=== PATIENT | female | born 1990 ===

== ENCOUNTER 2016-05-19 18:08 | Emergency (ER) | payer OTHER ==
--- NOTE | 2016-05-19 18:59 | ED NURSING NOTES ---
Clinical Report - Nurses [facility] [address] [place] [address] 05/19/2016 18:09 Patient: MERISSA CARTER V TRIAGE Triage time 1815. Acuity: LEVEL 5. Chief Complaint: (herpes outbreak). Alert. No acute distress. --18:24 Alycia Franco 18:22 05/19/16. BP: 110/57. HR: 85. RR: 16. O2 saturation: 100%. Temp: 97.8 F. Pain level now 7/10. --18:24 Alycia Franco. Weight: 72.1 kg. Height/Length: 59 inches. BMI: 32.1. --18:22 Alycia Franco. Medications Thyroid Hormone. --18:23 Alycia Franco. Allergies No Known Drug Allergy. --18:22 Alycia Franco. History Arrived by private vehicle. Historian: patient. Accompanied by family. This started yesterday. 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 PAST MEDICAL HX: Prior sexually transmitted disease history: herpes (recently). Treated for this in the ED. SOCIAL HX: Light tobacco smoker (cigarette)- less than 1/2 a pack per day. Occasional alcohol use. History of drug use: marijuana. FALL RISK ASSESSMENT: Fall risk assessment completed. No fall risk identified. NUTRITIONAL RISK ASSESSMENT: The nutritional risk assessment revealed no deficiencies. FUNCTIONAL ASSESSMENT: Functional assessment: no impairments noted. LEARNING NEEDS ASSESSMENT: The learning needs assessment revealed no barriers. SKIN INTEGRITY ASSESSMENT: Skin integrity risk assessment completed. No skin integrity risk identified. --18:24 Alycia Franoc. PROBLEMS: Abscess. Cellulitis. MRSA Infection. Lymphadenitis. Atypical Chest Pain. Otitis Media. Bronchitis. Immunizations. LNMP - Last Normal Menstrual Period. Hyperactive thyroid. Colitis. UTI - Urinary Tract Infection. Rheumatoid Arthritis. --18:23 Alycia Franco. Interventions ID band on patient. To treatment room. --18:24 Alycia Franco. PHYSICAL ASSESSMENT Ambulatory to room. GENERAL / NEURO / PSYCH: Alert. Oriented X 4. Appears in no acute distress. HEENT: Mucous membranes are pink. RESPIRATORY: Respirations not labored. Breath sounds within normal limits. CVS: Normal heart rate and rhythm. Capillary refill less than 2 seconds. GI / : Abdomen soft and nontender. Bowel sounds within normal limits. Genital lesions present. SKIN: Skin is warm and dry. --18:25 Alycia Franco. NURSING PROGRESS NOTES Two patient identifiers checked. Call light placed in reach. Bed placed in lowest position. Brakes of bed on. Patient ready for evaluation- chart flagged. --18:25 Alycia Franco. DISPOSITION / DISCHARGE Departure time: 1909. Condition at departure: unchanged and stable. Discharge instructions provided and reviewed with the patient. Reviewed medication(s). Patient verbalized understanding. Written instructions provided in Malaysian. The patient was discharged by the nurse practitioner. She was discharged home and accompanied by family. She left the Emergency Department ambulatory and via private vehicle. Family member driving. --19:13 Alycia Franco. Locked/Released at 05/19/2016 19:13 by Alycia Franco,
--- NOTE | 2016-05-19 18:59 | ED NURSING NOTES ---
Clinical Report - Nurses [facility] [address] [place] [address] 05/19/2016 18:09 Patient: MERISSA CARTER V TRIAGE Triage time 1815. Acuity: LEVEL 5. Chief Complaint: (herpes outbreak). Alert. No acute distress. --18:24 Alycia Franco 18:22 05/19/16. BP: 110/57. HR: 85. RR: 16. O2 saturation: 100%. Temp: 97.8 F. Pain level now 7/10. --18:24 Alycia Franco. Weight: 72.1 kg. Height/Length: 59 inches. BMI: 32.1. --18:22 Alycia Franco. Medications Thyroid Hormone. --18:23 Alycia Franco. Allergies No Known Drug Allergy. --18:22 Alycia Franco. History Arrived by private vehicle. Historian: patient. Accompanied by family. This started yesterday. 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 PAST MEDICAL HX: Prior sexually transmitted disease history: herpes (recently). Treated for this in the ED. SOCIAL HX: Light tobacco smoker (cigarette)- less than 1/2 a pack per day. Occasional alcohol use. History of drug use: marijuana. FALL RISK ASSESSMENT: Fall risk assessment completed. No fall risk identified. NUTRITIONAL RISK ASSESSMENT: The nutritional risk assessment revealed no deficiencies. FUNCTIONAL ASSESSMENT: Functional assessment: no impairments noted. LEARNING NEEDS ASSESSMENT: The learning needs assessment revealed no barriers. SKIN INTEGRITY ASSESSMENT: Skin integrity risk assessment completed. No skin integrity risk identified. --18:24 Alycia Franco. PROBLEMS: Abscess. Cellulitis. MRSA Infection. Lymphadenitis. Atypical Chest Pain. Otitis Media. Bronchitis. Immunizations. LNMP - Last Normal Menstrual Period. Hyperactive thyroid. Colitis. UTI - Urinary Tract Infection. Rheumatoid Arthritis. --18:23 Alycia Franco. Interventions ID band on patient. To treatment room. --18:24 Alycia Franco. PHYSICAL ASSESSMENT Ambulatory to room. GENERAL / NEURO / PSYCH: Alert. Oriented X 4. Appears in no acute distress. HEENT: Mucous membranes are pink. RESPIRATORY: Respirations not labored. Breath sounds within normal limits. CVS: Normal heart rate and rhythm. Capillary refill less than 2 seconds. GI / : Abdomen soft and nontender. Bowel sounds within normal limits. Genital lesions present. SKIN: Skin is warm and dry. --18:25 Alycia Franco. NURSING PROGRESS NOTES Two patient identifiers checked. Call light placed in reach. Bed placed in lowest position. Brakes of bed on. Patient ready for evaluation- chart flagged. --18:25 Alycia Franco. DISPOSITION / DISCHARGE Departure time: 1909. Condition at departure: unchanged and stable. Discharge instructions provided and reviewed with the patient. Reviewed medication(s). Patient verbalized understanding. Written instructions provided in [place]. The patient was discharged by the nurse practitioner. She was discharged home and accompanied by family. She left the Emergency Department ambulatory and via private vehicle. Family member driving. --19:13 Alycia Franco. Locked/Released at 05/19/2016 19:13 by Alycia Franco,
--- NOTE | 2016-05-19 18:59 | ED CLINICAL REPORT ---
Clinical Report - Physicians/Mid Levels [facility] [address] [place] [address] 05/19/2016 18:09 Patient: MERISSA CARTER V Time Seen: 18:43; initial patient contact, initial documentation, patient care assumed. Arrived- By private vehicle. Historian- patient. HISTORY OF PRESENT ILLNESS Chief Complaint: VAGINAL LESIONS. This started about 2 - 3 days ago and still present. The symptoms are described as moderate. The patient has had vaginal pain. No abdominal pain, pelvic pain, low back pain, flank pain or irregular periods. No vaginal discharge, pain with urination, urinary frequency, urgency of urination or hematuria. Sexually active. Denies current . Similar symptoms previously: Once, worse. Recent medical care: Not recently seen/assessed. REVIEW OF SYSTEMS All systems otherwise negative, except as recorded above. PAST HISTORY See nurses notes. ( PROBLEMS: Abscess. Cellulitis. MRSA Infection. Lymphadenitis. Atypical Chest Pain. Otitis Media. Bronchitis. Immunizations. LNMP - Last Normal Menstrual Period. Hyperactive thyroid. Colitis. UTI - Urinary Tract Infection. Rheumatoid Arthritis. --18:23 Alycia Franco.). SOCIAL HISTORY Light tobacco smoker. Occasional alcohol use. History of occasional drug use: marijuana. No recent travel. Is a local resident. FAMILY HISTORY Negative. ADDITIONAL NOTES The nursing notes have been reviewed with agreement regarding the chief complaint, HPI, ROS, PMH and patient medications and allergies. PHYSICAL EXAM Vital Signs: 05/19/2016 18:22 BP: 110/57. HR: 85. RR: 16. O2 saturation: 100%. Temp: 97.8 F. Have been reviewed as normal and appear to be correct. Appearance: Alert. Oriented X3. No acute distress. HEENT: Normal external inspection. ENT: Pharynx normal. Neck: Neck supple. Respiratory: No respiratory distress. Abdomen: Soft and nontender. : External inspection abnormal. Speculum exam abnormal. Many mildly tender herpes-like lesions (vesicles, papules, with an erythematous base) present on the right and left labia majora and minora (and suprapubic area). Bimanual exam abnormal. Skin: Skin warm and dry. Normal skin color. No rash. Normal skin turgor. Extremities: Extremities nontender. No lower extremity edema. Neuro: Oriented X 3. Mood/affect normal. No motor deficit. No sensory deficit. PROGRESS AND PROCEDURES Patient/family counseled in person regarding the patient's stable condition and diagnosis. 18:59. Differential Diagnosis: Other possible considerations: herpes, folliculitis, abscess, cellulitis, mrsa, fungus. Above considerations are based on history and physical exam. Differential diagnosis was discussed with patient. Disposition: Discharged home in good and unchanged condition (18:59). Condition: good and stable. CLINICAL IMPRESSION Herpes genitalis involving the vulva and vagina. No urinary retention. INSTRUCTIONS Warnings: GENERAL WARNINGS: Return or contact your physician immediately if your condition worsens or changes unexpectedly, if not improving as expected, or if other problems arise. Specifically return if problem worsens. Prescription Medications: Acyclovir 200 mg: Take 1 orally every 4 hours (five times daily) for 10 days. No refill. Ultram 50 mg tablets: take 1-2 orally every 6 hours as needed for pain. Dispense twenty (20). No refills. Substitution is permissible. Understanding of the discharge instructions verbalized by patient. Follow-up with: William Metzger MD, Obstetrics/Gynecology, , [facility], [address] [place] [address] Follow up in about five days even if well. Call for an appointment. Summary of care provided to patient. (Electronically signed by Nirali Kwon A.R.N.P. 05/19/2016 20:22)
--- NOTE | 2016-05-19 18:59 | ED CLINICAL REPORT ---
Clinical Report - Physicians/Mid Levels [facility] [address] [place] [address] 05/19/2016 18:09 Patient: MERISSA CARTER V Time Seen: 18:43; initial patient contact, initial documentation, patient care assumed. Arrived- By private vehicle. Historian- patient. HISTORY OF PRESENT ILLNESS Chief Complaint: VAGINAL LESIONS. This started about 2 - 3 days ago and still present. The symptoms are described as moderate. The patient has had vaginal pain. No abdominal pain, pelvic pain, low back pain, flank pain or irregular periods. No vaginal discharge, pain with urination, urinary frequency, urgency of urination or hematuria. Sexually active. Denies current . Similar symptoms previously: Once, worse. Recent medical care: Not recently seen/assessed. REVIEW OF SYSTEMS All systems otherwise negative, except as recorded above. PAST HISTORY See nurses notes. ( PROBLEMS: Abscess. Cellulitis. MRSA Infection. Lymphadenitis. Atypical Chest Pain. Otitis Media. Bronchitis. Immunizations. LNMP - Last Normal Menstrual Period. Hyperactive thyroid. Colitis. UTI - Urinary Tract Infection. Rheumatoid Arthritis. --18:23 Alycia Franco.). SOCIAL HISTORY Light tobacco smoker. Occasional alcohol use. History of occasional drug use: marijuana. No recent travel. Is a local resident. FAMILY HISTORY Negative. ADDITIONAL NOTES The nursing notes have been reviewed with agreement regarding the chief complaint, HPI, ROS, PMH and patient medications and allergies. PHYSICAL EXAM Vital Signs: 05/19/2016 18:22 BP: 110/57. HR: 85. RR: 16. O2 saturation: 100%. Temp: 97.8 F. Have been reviewed as normal and appear to be correct. Appearance: Alert. Oriented X3. No acute distress. HEENT: Normal external inspection. ENT: Pharynx normal. Neck: Neck supple. Respiratory: No respiratory distress. Abdomen: Soft and nontender. : External inspection abnormal. Speculum exam abnormal. Many mildly tender herpes-like lesions (vesicles, papules, with an erythematous base) present on the right and left labia majora and minora (and suprapubic area). Bimanual exam abnormal. Skin: Skin warm and dry. Normal skin color. No rash. Normal skin turgor. Extremities: Extremities nontender. No lower extremity edema. Neuro: Oriented X 3. Mood/affect normal. No motor deficit. No sensory deficit. PROGRESS AND PROCEDURES Patient/family counseled in person regarding the patient's stable condition and diagnosis. 18:59. Differential Diagnosis: Other possible considerations: herpes, folliculitis, abscess, cellulitis, mrsa, fungus. Above considerations are based on history and physical exam. Differential diagnosis was discussed with patient. Disposition: Discharged home in good and unchanged condition (18:59). Condition: good and stable. CLINICAL IMPRESSION Herpes genitalis involving the vulva and vagina. No urinary retention. INSTRUCTIONS Warnings: GENERAL WARNINGS: Return or contact your physician immediately if your condition worsens or changes unexpectedly, if not improving as expected, or if other problems arise. Specifically return if problem worsens. Prescription Medications: Acyclovir 200 mg: Take 1 orally every 4 hours (five times daily) for 10 days. No refill. Ultram 50 mg tablets: take 1-2 orally every 6 hours as needed for pain. Dispense twenty (20). No refills. Substitution is permissible. Understanding of the discharge instructions verbalized by patient. Follow-up with: William Metzger MD, Obstetrics/Gynecology, , [facility], [address] [place] [address] Follow up in about five days even if well. Call for an appointment. Summary of care provided to patient. (Electronically signed by Nirali Kwon A.R.N.P. 05/19/2016 20:22)
--- NOTE | 2016-05-19 20:22 | ED MAR SUMMARY ---
..... Medication Administration Record [facility] [address] [place], [place] [id number] Patient: MERISSA CARTER V Visit ID: [id number] 25y, F Weight: 72.1 kg Height/Length: 59 in BMI: 32.1 ALLERGIES: No Known Drug Allergy
--- NOTE | 2016-05-19 20:22 | ED MAR SUMMARY ---
..... Medication Administration Record [facility] [address] [place], [place] [id number] Patient: MERISSA CARTER V Visit ID: [id number] 25y, F Weight: 72.1 kg Height/Length: 59 in BMI: 32.1 ALLERGIES: No Known Drug Allergy
--- NOTE | 2016-05-19 20:22 | ED DISCHARGE INSTRUCTIONS ---
Patient: MERISSA CARTER V General Instructions [facility] VisitID: [id number] [place] [address] 25y, F Registration Date/Time: 05/19/2016 Herpes genitalis involving the vulva and vagina. No urinary retention. INSTRUCTIONS Warnings: GENERAL WARNINGS: Return or contact your physician immediately if your condition worsens or changes unexpectedly, if not improving as expected, or if other problems arise. Specifically return if problem worsens. Prescription Medications: Acyclovir 200 mg: Take 1 orally every 4 hours (five times daily) for 10 days. No refill. Ultram 50 mg tablets: take 1-2 orally every 6 hours as needed for pain. Dispense twenty (20). No refills. Substitution is permissible. Understanding of the discharge instructions verbalized by patient. Follow-up with: William Metzger MD, Obstetrics/Gynecology, , [facility], [address] [place] [address] Follow up in about five days even if well. Call for an appointment. Summary of care provided to patient. ADDITIONAL INFORMATION Genital Herpes Genital herpes is a common sexually transmitted disease (STD). It is caused by the Herpes Simplex virus. One out of five (20%) teens and adults carry the herpes virus. During an outbreak, it causes small blisters that break open, leaving small painful ulcers (sores) in the genital area. Eventually, scabs form and the ulcers heal. In women, these are most often on the skin just outside the vaginal opening. They can occur on the buttocks, anus or cervix. In men, the sores are usually on the tip, sides or base of the penis. They also occur on the scrotum, buttocks or thighs. The first episode begins within 2-3 weeks after exposure to an infected sexual partner. It may last 1-3 weeks and cause headache, muscle ache and fevers. The first outbreak is usually the worst. Because the virus remains in the body even after the sores heal, most persons will have recurrences. The frequency of recurrent outbreaks varies with each person. Some people will never have another outbreak. Others will have several episodes a year. Later outbreaks are usually shorter, milder and less painful. For many, the number of outbreaks tends to decrease over time. Various factors may trigger a recurrence. These include: Emotional stress Menstruation Presence of another illness (cold, flu, or fever from any cause) Overexertion and fatigue Weakened immune system Home Care: It is very important that you do not have sexual relations until ALL the herpes sores have healed completely. Wash the affected area gently with mild soap and water. Wash your hands after touching the affected area. You may use acetaminophen (Tylenol) or ibuprofen (Motrin, Advil) to control pain, unless another pain medicine was prescribed. [NOTE: If you have chronic liver or kidney disease or ever had a stomach ulcer or GI bleeding, talk with your doctor before using these medicines.] Your doctor may prescribe anti-viral medicine during the first outbreak. This will help the sores heal faster. Antiviral medicine may also be prescribed to have at home to take at the first sign of a recurrence. This will shorten the symptoms of a recurrence. For persons with frequent outbreaks, daily therapy may be prescribed. This will reduce the frequency of attacks. Daily therapy may also reduce risk of spread of herpes to your sexual partner. Discuss the risks and benefits of daily therapy with your doctor. If you are a woman who is now or become in the future, let your doctor know that you have had herpes since this may affect the method of delivery. Preventing Spread To Others: The virus is spread by sexual contact with someone who has the herpes virus. The risk of spread is highest when the sores are present. However, there is a chance of spreading the virus even when sores are not visible . Inform future sexual partners that you have herpes and that he/she may become infected. To reduce the risk of passing the virus to a partner who has never had herpes, avoid sexual relations at the first sign of an outbreak and until the ulcers are fully healed. Latex condoms reduce the risk of spread between outbreaks if the infected site is covered, but they do not guarantee protection. Follow-Up: Persons who have just learned that they have herpes may feel guilt, anger, and be emotionally upset. Getting the facts helps put you back in control. Follow up with your doctor or the Public Health Dept for complete STD screening, including HIV testing. For more information about Herpes, see the "National Herpes Resource Center" http://www.ashastd.org/herpes/herpes_overview.cfm ; or call the National STD Hotline: 290.171.9422. Get Prompt Medical Attention if any of the following occur: Inability to urinate due to pain Swelling or increasing redness in the genital area Unusual drowsiness, weakness or confusion Headache, stiff neck Discharge from the vagina or penis Increasing back or abdominal pain Rash or joint pain Acyclovir Oral tablet What is this medicine? ACYCLOVIR (ay SYE kloe veer) is an antiviral medicine. It is used to treat or prevent infections caused by certain kinds of viruses. Examples of these infections include herpes and shingles. This medicine will not cure herpes. How should I use this medicine? Take this medicine by mouth with a glass of water. Follow the directions on the prescription label. You can take it with or without food. Take your medicine at regular intervals. Do not take your medicine more often than directed. Take all of your medicine as directed even if you think your are better. Do not skip doses or stop your medicine early. Talk to your ballistician regarding the use of this medicine in children. While this drug may be prescribed for selected conditions, precautions do apply. What side effects may I notice from receiving this medicine? Side effects that you should report to your doctor or health administrator health care facility as soon as possible: allergic reactions like skin rash, itching or hives, swelling of the face, lips, or tongue chest pain confusion, hallucinations, tremor dark urine increased sensitivity to the sun redness, blistering, peeling or loosening of the skin, including inside the mouth seizures trouble passing urine or change in the amount of urine unusual bleeding or bruising, or pinpoint red spots on the skin unusually weak or tired yellowing of the eyes or skin Side effects that usually do not require medical attention (report to your doctor or health administrator health care facility if they continue or are bothersome): diarrhea fever headache nausea, vomiting stomach upset What may interact with this medicine? probenecid What if I miss a dose? If you miss a dose, take it as soon as you can. If it is almost time for your next dose, take only that dose. Do not take double or extra doses. Where should I keep my medicine? Keep out of the reach of children. Store at room temperature between 15 and 25 degrees C (59 and 77 degrees F). Throw away any unused medicine after the expiration date. What should I tell my health care provider before I take this medicine? They need to know if you have any of these conditions: kidney disease an unusual or allergic reaction to acyclovir, ganciclovir, valacyclovir, other medicines, foods, dyes, or preservatives or trying to get breast-feeding What should I watch for while using this medicine? Tell your doctor or health administrator health care facility if your symptoms do not improve. This medicine works best when started very early in the course of an infection. Begin treatment at the first signs of infection. Drink 6 to 8 glasses of water or fluids every day while you are taking this medicine. This will help prevent side effects. You can still pass chickenpox, shingles, or herpes to another person even while you are taking this medicine. Avoid contact with others as directed. Genital herpes is a sexually transmitted disease. Talk to your doctor about how to stop the spread of infection. Tramadol Hydrochloride Oral tablet What is this medicine? TRAMADOL (TRA ma dole) is a pain reliever. It is used to treat moderate to severe pain in adults. How should I use this medicine? Take this medicine by mouth with a full glass of water. Follow the directions on the prescription label. If the medicine upsets your stomach, take it with food or milk. Do not take more medicine than you are told to take. Talk to your ballistician regarding the use of this medicine in children. Special care may be needed. What side effects may I notice from receiving this medicine? Side effects that you should report to your doctor or health administrator health care facility as soon as possible: allergic reactions like skin rash, itching or hives, swelling of the face, lips, or tongue breathing difficulties, wheezing confusion itching light headedness or fainting spells redness, blistering, peeling or loosening of the skin, including inside the mouth seizures Side effects that usually do not require medical attention (report to your doctor or health administrator health care facility if they continue or are bothersome): constipation dizziness drowsiness headache nausea, vomiting What may interact with this medicine? Do not take this medicine with any of the following medications: MAOIs like Carbex, Eldepryl, Marplan, Nardil, and Parnate This medicine may also interact with the following medications: alcohol or medicines that contain alcohol antihistamines benzodiazepines bupropion carbamazepine or oxcarbazepine clozapine cyclobenzaprine digoxin furazolidone linezolid medicines for depression, anxiety, or psychotic disturbances medicines for migraine headache like almotriptan, eletriptan, frovatriptan, naratriptan, rizatriptan, sumatriptan, zolmitriptan medicines for pain like pentazocine, buprenorphine, butorphanol, meperidine, nalbuphine, and propoxyphene medicines for sleep muscle relaxants naltrexone phenobarbital phenothiazines like perphenazine, thioridazine, chlorpromazine, mesoridazine, fluphenazine, prochlorperazine, promazine, and trifluoperazine procarbazine warfarin What if I miss a dose? If you miss a dose, take it as soon as you can. If it is almost time for your next dose, take only that dose. Do not take double or extra doses. Where should I keep my medicine? Keep out of the reach of children. Store at room temperature between 15 and 30 degrees C (59 and 86 degrees F). Keep container tightly closed. Throw away any unused medicine after the expiration date. What should I tell my health care provider before I take this medicine? They need to know if you have any of these conditions: brain tumor depression drug abuse or addiction head injury if you frequently drink alcohol containing drinks kidney disease or trouble passing urine liver disease lung disease, asthma, or breathing problems seizures or epilepsy suicidal thoughts, plans, or attempt; a previous suicide attempt by you or a family member an unusual or allergic reaction to tramadol, codeine, other medicines, foods, dyes, or preservatives or trying to get breast-feeding What should I watch for while using this medicine? Tell your doctor or health administrator health care facility if your pain does not go away, if it gets worse, or if you have new or a different type of pain. You may develop tolerance to the medicine. Tolerance means that you will need a higher dose of the medicine for pain relief. Tolerance is normal and is expected if you take this medicine for a long time. Do not suddenly stop taking your medicine because you may develop a severe reaction. Your body becomes used to the medicine. This does NOT mean you are addicted. Addiction is a behavior related to getting and using a drug for a non-medical reason. If you have pain, you have a medical reason to take pain medicine. Your doctor will tell you how much medicine to take. If your doctor wants you to stop the medicine, the dose will be slowly lowered over time to avoid any side effects. You may get drowsy or dizzy. Do not drive, use machinery, or do anything that needs mental alertness until you know how this medicine affects you. Do not stand or sit up quickly, especially if you are an older patient. This reduces the risk of dizzy or fainting spells. Alcohol can increase or decrease the effects of this medicine. Avoid alcoholic drinks. You may have constipation. Try to have a bowel movement at least every 2 to 3 days. If you do not have a bowel movement for 3 days, call your doctor or health administrator health care facility. Your mouth may get dry. Chewing sugarless gum or sucking hard candy, and drinking plenty of water may help. Contact your doctor if the problem does not go away or is severe. You have been given the following additional information: Herpes Genitalis, Hsv: Type Ii Acyclovir Oral tablet Tramadol Hydrochloride Oral tablet (Electronically signed by Nirali Kwon A.R.N.P. 05/19/2016 20:22)
--- NOTE | 2016-05-19 20:22 | ED MED RECONCILIATION SUMMARY ---
Patient: MERISSA CARTER V Medication Reconciliation Report [facility] VisitID: [id number] [address] [place] [address] 25y, F Registration Date/Time: 05/19/2016 Weight: 72.1 kg Height/Length: 59 in. BMI: 32.1 ALLERGIES: No Known Drug Allergy The patient's Home Medications are listed below: THE FOLLOWING MEDICATIONS NEED TO BE RECONCILED: Thyroid Hormone The source(s) of the original Home Medication information: Not obtained. The following Medications were given to the patient in the Emergency Department: None. The following Medications were prescribed to the patient: Acyclovir 200 mg: Take 1 orally every 4 hours (five times daily) for 10 days. No refill. -- Nirali Kwon, Ken.R.N.P. Ultram 50 mg tablets: take 1-2 orally every 6 hours as needed for pain. Dispense twenty (20). No refills. Substitution is permissible. -- Nirali Kwon A.R.N.P.
--- NOTE | 2016-05-19 20:22 | ED DISCHARGE INSTRUCTIONS ---
Patient: MERISSA CARTER V General Instructions [facility] VisitID: [id number] [place] [address] 25y, F Registration Date/Time: 05/19/2016 Herpes genitalis involving the vulva and vagina. No urinary retention. INSTRUCTIONS Warnings: GENERAL WARNINGS: Return or contact your physician immediately if your condition worsens or changes unexpectedly, if not improving as expected, or if other problems arise. Specifically return if problem worsens. Prescription Medications: Acyclovir 200 mg: Take 1 orally every 4 hours (five times daily) for 10 days. No refill. Ultram 50 mg tablets: take 1-2 orally every 6 hours as needed for pain. Dispense twenty (20). No refills. Substitution is permissible. Understanding of the discharge instructions verbalized by patient. Follow-up with: William Metzger MD, Obstetrics/Gynecology, , [facility], [address] [place] [address] Follow up in about five days even if well. Call for an appointment. Summary of care provided to patient. ADDITIONAL INFORMATION Genital Herpes Genital herpes is a common sexually transmitted disease (STD). It is caused by the Herpes Simplex virus. One out of five (20%) teens and adults carry the herpes virus. During an outbreak, it causes small blisters that break open, leaving small painful ulcers (sores) in the genital area. Eventually, scabs form and the ulcers heal. In women, these are most often on the skin just outside the vaginal opening. They can occur on the buttocks, anus or cervix. In men, the sores are usually on the tip, sides or base of the penis. They also occur on the scrotum, buttocks or thighs. The first episode begins within 2-3 weeks after exposure to an infected sexual partner. It may last 1-3 weeks and cause headache, muscle ache and fevers. The first outbreak is usually the worst. Because the virus remains in the body even after the sores heal, most persons will have recurrences. The frequency of recurrent outbreaks varies with each person. Some people will never have another outbreak. Others will have several episodes a year. Later outbreaks are usually shorter, milder and less painful. For many, the number of outbreaks tends to decrease over time. Various factors may trigger a recurrence. These include: Emotional stress Menstruation Presence of another illness (cold, flu, or fever from any cause) Overexertion and fatigue Weakened immune system Home Care: It is very important that you do not have sexual relations until ALL the herpes sores have healed completely. Wash the affected area gently with mild soap and water. Wash your hands after touching the affected area. You may use acetaminophen (Tylenol) or ibuprofen (Motrin, Advil) to control pain, unless another pain medicine was prescribed. [NOTE: If you have chronic liver or kidney disease or ever had a stomach ulcer or GI bleeding, talk with your doctor before using these medicines.] Your doctor may prescribe anti-viral medicine during the first outbreak. This will help the sores heal faster. Antiviral medicine may also be prescribed to have at home to take at the first sign of a recurrence. This will shorten the symptoms of a recurrence. For persons with frequent outbreaks, daily therapy may be prescribed. This will reduce the frequency of attacks. Daily therapy may also reduce risk of spread of herpes to your sexual partner. Discuss the risks and benefits of daily therapy with your doctor. If you are a woman who is now or become in the future, let your doctor know that you have had herpes since this may affect the method of delivery. Preventing Spread To Others: The virus is spread by sexual contact with someone who has the herpes virus. The risk of spread is highest when the sores are present. However, there is a chance of spreading the virus even when sores are not visible . Inform future sexual partners that you have herpes and that he/she may become infected. To reduce the risk of passing the virus to a partner who has never had herpes, avoid sexual relations at the first sign of an outbreak and until the ulcers are fully healed. Latex condoms reduce the risk of spread between outbreaks if the infected site is covered, but they do not guarantee protection. Follow-Up: Persons who have just learned that they have herpes may feel guilt, anger, and be emotionally upset. Getting the facts helps put you back in control. Follow up with your doctor or the Public Health Dept for complete STD screening, including HIV testing. For more information about Herpes, see the "National Herpes Resource Center" http://www.ashastd.org/herpes/herpes_overview.cfm ; or call the National STD Hotline: 673.391.5006. Get Prompt Medical Attention if any of the following occur: Inability to urinate due to pain Swelling or increasing redness in the genital area Unusual drowsiness, weakness or confusion Headache, stiff neck Discharge from the vagina or penis Increasing back or abdominal pain Rash or joint pain Acyclovir Oral tablet What is this medicine? ACYCLOVIR (ay SYE kloe veer) is an antiviral medicine. It is used to treat or prevent infections caused by certain kinds of viruses. Examples of these infections include herpes and shingles. This medicine will not cure herpes. How should I use this medicine? Take this medicine by mouth with a glass of water. Follow the directions on the prescription label. You can take it with or without food. Take your medicine at regular intervals. Do not take your medicine more often than directed. Take all of your medicine as directed even if you think your are better. Do not skip doses or stop your medicine early. Talk to your armoured car escort regarding the use of this medicine in children. While this drug may be prescribed for selected conditions, precautions do apply. What side effects may I notice from receiving this medicine? Side effects that you should report to your doctor or health wound care physician as soon as possible: allergic reactions like skin rash, itching or hives, swelling of the face, lips, or tongue chest pain confusion, hallucinations, tremor dark urine increased sensitivity to the sun redness, blistering, peeling or loosening of the skin, including inside the mouth seizures trouble passing urine or change in the amount of urine unusual bleeding or bruising, or pinpoint red spots on the skin unusually weak or tired yellowing of the eyes or skin Side effects that usually do not require medical attention (report to your doctor or health wound care physician if they continue or are bothersome): diarrhea fever headache nausea, vomiting stomach upset What may interact with this medicine? probenecid What if I miss a dose? If you miss a dose, take it as soon as you can. If it is almost time for your next dose, take only that dose. Do not take double or extra doses. Where should I keep my medicine? Keep out of the reach of children. Store at room temperature between 15 and 25 degrees C (59 and 77 degrees F). Throw away any unused medicine after the expiration date. What should I tell my health care provider before I take this medicine? They need to know if you have any of these conditions: kidney disease an unusual or allergic reaction to acyclovir, ganciclovir, valacyclovir, other medicines, foods, dyes, or preservatives or trying to get breast-feeding What should I watch for while using this medicine? Tell your doctor or health wound care physician if your symptoms do not improve. This medicine works best when started very early in the course of an infection. Begin treatment at the first signs of infection. Drink 6 to 8 glasses of water or fluids every day while you are taking this medicine. This will help prevent side effects. You can still pass chickenpox, shingles, or herpes to another person even while you are taking this medicine. Avoid contact with others as directed. Genital herpes is a sexually transmitted disease. Talk to your doctor about how to stop the spread of infection. Tramadol Hydrochloride Oral tablet What is this medicine? TRAMADOL (TRA ma dole) is a pain reliever. It is used to treat moderate to severe pain in adults. How should I use this medicine? Take this medicine by mouth with a full glass of water. Follow the directions on the prescription label. If the medicine upsets your stomach, take it with food or milk. Do not take more medicine than you are told to take. Talk to your armoured car escort regarding the use of this medicine in children. Special care may be needed. What side effects may I notice from receiving this medicine? Side effects that you should report to your doctor or health wound care physician as soon as possible: allergic reactions like skin rash, itching or hives, swelling of the face, lips, or tongue breathing difficulties, wheezing confusion itching light headedness or fainting spells redness, blistering, peeling or loosening of the skin, including inside the mouth seizures Side effects that usually do not require medical attention (report to your doctor or health wound care physician if they continue or are bothersome): constipation dizziness drowsiness headache nausea, vomiting What may interact with this medicine? Do not take this medicine with any of the following medications: MAOIs like Carbex, Eldepryl, Marplan, Nardil, and Parnate This medicine may also interact with the following medications: alcohol or medicines that contain alcohol antihistamines benzodiazepines bupropion carbamazepine or oxcarbazepine clozapine cyclobenzaprine digoxin furazolidone linezolid medicines for depression, anxiety, or psychotic disturbances medicines for migraine headache like almotriptan, eletriptan, frovatriptan, naratriptan, rizatriptan, sumatriptan, zolmitriptan medicines for pain like pentazocine, buprenorphine, butorphanol, meperidine, nalbuphine, and propoxyphene medicines for sleep muscle relaxants naltrexone phenobarbital phenothiazines like perphenazine, thioridazine, chlorpromazine, mesoridazine, fluphenazine, prochlorperazine, promazine, and trifluoperazine procarbazine warfarin What if I miss a dose? If you miss a dose, take it as soon as you can. If it is almost time for your next dose, take only that dose. Do not take double or extra doses. Where should I keep my medicine? Keep out of the reach of children. Store at room temperature between 15 and 30 degrees C (59 and 86 degrees F). Keep container tightly closed. Throw away any unused medicine after the expiration date. What should I tell my health care provider before I take this medicine? They need to know if you have any of these conditions: brain tumor depression drug abuse or addiction head injury if you frequently drink alcohol containing drinks kidney disease or trouble passing urine liver disease lung disease, asthma, or breathing problems seizures or epilepsy suicidal thoughts, plans, or attempt; a previous suicide attempt by you or a family member an unusual or allergic reaction to tramadol, codeine, other medicines, foods, dyes, or preservatives or trying to get breast-feeding What should I watch for while using this medicine? Tell your doctor or health wound care physician if your pain does not go away, if it gets worse, or if you have new or a different type of pain. You may develop tolerance to the medicine. Tolerance means that you will need a higher dose of the medicine for pain relief. Tolerance is normal and is expected if you take this medicine for a long time. Do not suddenly stop taking your medicine because you may develop a severe reaction. Your body becomes used to the medicine. This does NOT mean you are addicted. Addiction is a behavior related to getting and using a drug for a non-medical reason. If you have pain, you have a medical reason to take pain medicine. Your doctor will tell you how much medicine to take. If your doctor wants you to stop the medicine, the dose will be slowly lowered over time to avoid any side effects. You may get drowsy or dizzy. Do not drive, use machinery, or do anything that needs mental alertness until you know how this medicine affects you. Do not stand or sit up quickly, especially if you are an older patient. This reduces the risk of dizzy or fainting spells. Alcohol can increase or decrease the effects of this medicine. Avoid alcoholic drinks. You may have constipation. Try to have a bowel movement at least every 2 to 3 days. If you do not have a bowel movement for 3 days, call your doctor or health wound care physician. Your mouth may get dry. Chewing sugarless gum or sucking hard candy, and drinking plenty of water may help. Contact your doctor if the problem does not go away or is severe. You have been given the following additional information: Herpes Genitalis, Hsv: Type Ii Acyclovir Oral tablet Tramadol Hydrochloride Oral tablet (Electronically signed by Nirali Kwon A.R.N.P. 05/19/2016 20:22)
--- NOTE | 2016-05-19 20:22 | ED MED RECONCILIATION SUMMARY ---
Patient: MERISSA CARTER V Medication Reconciliation Report [facility] VisitID: [id number] [address] [place] [address] 25y, F Registration Date/Time: 05/19/2016 Weight: 72.1 kg Height/Length: 59 in. BMI: 32.1 ALLERGIES: No Known Drug Allergy The patient's Home Medications are listed below: THE FOLLOWING MEDICATIONS NEED TO BE RECONCILED: Thyroid Hormone The source(s) of the original Home Medication information: Not obtained. The following Medications were given to the patient in the Emergency Department: None. The following Medications were prescribed to the patient: Acyclovir 200 mg: Take 1 orally every 4 hours (five times daily) for 10 days. No refill. -- Nirali Kwon, Ken.R.N.P. Ultram 50 mg tablets: take 1-2 orally every 6 hours as needed for pain. Dispense twenty (20). No refills. Substitution is permissible. -- Nirali Kwon A.R.N.P.
== END 2016-05-19 19:13 | disposition home or self-care (01) ==
LOC: ED SRH 18:08
DX: A60.09 Herpesviral infection of other urogenital tract (principal); F17.210 Nicotine dependence, cigarettes, uncomplicated

== ENCOUNTER 2016-06-07 14:26 | Emergency (ER) | payer OTHER ==
--- NOTE | 2016-06-07 15:57 | ED NURSING NOTES ---
Clinical Report - Nurses [facility] [address] [place] [address] 06/07/2016 14:28 Patient: MERISSA CARTER V TRIAGE Triage time 1435. Acuity: LEVEL 3. Chief Complaint: SHORTNESS OF BREATH and (headache, cough w copious amounts of sputum that is greenish colored). --14:50 Trisha Gatica R.N. 14:35 06/07/16. BP: 120/73. HR: 140. RR: 26. O2 saturation: 96% on room air. Temp: 98.7 F. Pain level now: 01/11. Additional comments: ches, back, shoulder. --14:50 Trisha Gatica R.N. Weight: 58.9 kg stated. Height/Length: 59 inches Per Patient. BMI: 26.2. --14:48 Trisha Gatica R.N. Medications Thyroid Hormone. --14:46 Trisha Gatica R.N. tylenol 975mg prn, last dose 0900. --14:47 Trisha Gatica R.N. Mucinex Fast-Max Day/Night Tab Oral, last dose last night . --14:47 Trisha Gatica R.N. Allergies No Known Drug Allergy. --14:46 Trisha Gatica R.N. History Arrived by private vehicle. Historian: patient and family. Accompanied by family. Primary physician ([facility]). Onset. (x 1 week, much worse last 3 -4 days). She has had fever, a cough, chest pain and back pain. ( also c/o left shoulder pain onset 3 days ago . has had vomiting with vigorous cough. difficulty sleeping at night). SOCIAL HX: Light tobacco smoker (cigarette)- less than 1/2 a pack per day. No alcohol use. --14:50 Trisha Gatica R.N. PROBLEMS: Herpes Genitalis. STD - Sexually Transmitted Disease. Abscess. Cellulitis. MRSA Infection. Lymphadenitis. Atypical Chest Pain. Otitis Media. Bronchitis. Hyperactive thyroid. Colitis. UTI - Urinary Tract Infection. Rheumatoid Arthritis. --14:46 Trisha Gatica R.N. Interventions ID band on patient. To treatment room. --14:50 Trisha Gatica R.N. PHYSICAL ASSESSMENT 14:35. Ambulatory to room. Patient gowned. GENERAL / NEURO / PSYCH: Alert. Oriented X 4. Appears anxious. RESPIRATORY: The patient can speak in full sentences. Cough. Chest wall tenderness. CVS: Capillary refill less than 2 seconds. GI / : Abdomen soft. SKIN: Skin is warm and dry. --14:51 Trisha Gatica R.N. NURSING PROGRESS NOTES 14:35. Patient gowned. Head of bed elevated. Reassurance given. Patient identifiers checked. Call light placed in reach. Side rails up. Bed placed in lowest position. Patient ready for evaluation- chart flagged. --14:50 Trisha Gatica R.N. DISPOSITION / DISCHARGE 15:45. Condition at departure: unchanged and stable. No learning barriers present. Discharge instructions provided and reviewed with the patient. Reviewed medication(s) (zithromax, motrin, tylenol). Patient verbalized understanding. Written instructions provided in Sami. The patient was discharged home and accompanied by family. She left the Emergency Department ambulatory and via private vehicle. Family member driving. --15:53 Trisha Gatica R.N. 15:45 06/07/16. BP: 112/80. HR: 108. RR: 22. O2 saturation: 94% on room air. Temp: deferred. Pain level now: 01/11. --15:53 Trisha Gatica R.N. Locked/Released at 06/07/2016 15:57 by Trisha Gatica R.N.
--- NOTE | 2016-06-07 15:57 | ED NURSING NOTES ---
Clinical Report - Nurses [facility] [address] [place] [address] 06/07/2016 14:28 Patient: MERISSA CARTER V TRIAGE Triage time 1435. Acuity: LEVEL 3. Chief Complaint: SHORTNESS OF BREATH and (headache, cough w copious amounts of sputum that is greenish colored). --14:50 Trisha Gatica R.N. 14:35 06/07/16. BP: 120/73. HR: 140. RR: 26. O2 saturation: 96% on room air. Temp: 98.7 F. Pain level now: 01/11. Additional comments: ches, back, shoulder. --14:50 Trisha Gatica R.N. Weight: 58.9 kg stated. Height/Length: 59 inches Per Patient. BMI: 26.2. --14:48 Trisha Gatica R.N. Medications Thyroid Hormone. --14:46 Trisha Gatica R.N. tylenol 975mg prn, last dose 0900. --14:47 Trisha Gatica R.N. Mucinex Fast-Max Day/Night Tab Oral, last dose last night . --14:47 Trisha Gatica R.N. Allergies No Known Drug Allergy. --14:46 Trisha Gatica R.N. History Arrived by private vehicle. Historian: patient and family. Accompanied by family. Primary physician ([facility]). Onset. (x 1 week, much worse last 3 -4 days). She has had fever, a cough, chest pain and back pain. ( also c/o left shoulder pain onset 3 days ago . has had vomiting with vigorous cough. difficulty sleeping at night). SOCIAL HX: Light tobacco smoker (cigarette)- less than 1/2 a pack per day. No alcohol use. --14:50 Trisha Gatica R.N. PROBLEMS: Herpes Genitalis. STD - Sexually Transmitted Disease. Abscess. Cellulitis. MRSA Infection. Lymphadenitis. Atypical Chest Pain. Otitis Media. Bronchitis. Hyperactive thyroid. Colitis. UTI - Urinary Tract Infection. Rheumatoid Arthritis. --14:46 Trisha Gatica R.N. Interventions ID band on patient. To treatment room. --14:50 Trisha Gatica R.N. PHYSICAL ASSESSMENT 14:35. Ambulatory to room. Patient gowned. GENERAL / NEURO / PSYCH: Alert. Oriented X 4. Appears anxious. RESPIRATORY: The patient can speak in full sentences. Cough. Chest wall tenderness. CVS: Capillary refill less than 2 seconds. GI / : Abdomen soft. SKIN: Skin is warm and dry. --14:51 Trisha Gatica R.N. NURSING PROGRESS NOTES 14:35. Patient gowned. Head of bed elevated. Reassurance given. Patient identifiers checked. Call light placed in reach. Side rails up. Bed placed in lowest position. Patient ready for evaluation- chart flagged. --14:50 Trisha Gatica R.N. DISPOSITION / DISCHARGE 15:45. Condition at departure: unchanged and stable. No learning barriers present. Discharge instructions provided and reviewed with the patient. Reviewed medication(s) (zithromax, motrin, tylenol). Patient verbalized understanding. Written instructions provided in Albanian. The patient was discharged home and accompanied by family. She left the Emergency Department ambulatory and via private vehicle. Family member driving. --15:53 Trisha Gatica R.N. 15:45 06/07/16. BP: 112/80. HR: 108. RR: 22. O2 saturation: 94% on room air. Temp: deferred. Pain level now: 01/11. --15:53 Trisha Gatica R.N. Locked/Released at 06/07/2016 15:57 by Trisha Gatica R.N.
--- NOTE | 2016-06-07 15:57 | ED CLINICAL REPORT ---
Clinical Report - Physicians/Mid Levels [facility] [address] [place] [address] 06/07/2016 14:28 Patient: MERISSA CARTER V Time Seen: 1510; initial patient contact, initial documentation, patient care assumed. Arrived- By private vehicle. Historian- patient. HISTORY OF PRESENT ILLNESS Chief Complaint: COUGH and FEVER. This started about 1 weeks ago and is still present. The illness is described as moderate. The patient has had a cough, nasal congestion, a subjective fever, muscle aches and a nasal discharge. She has had scant amounts of white sputum. No difficulty breathing, chest discomfort or pain, sore throat or sinus pressure. No sinus drainage or ear pain. Additional history - No known contact with a sick individual. Similar symptoms previously: None. Recent medical care: Not recently seen/assessed. REVIEW OF SYSTEMS No headache or abdominal pain. She has had vomiting (coughing so hard it makes her gag and vomit). All systems otherwise negative, except as recorded above. PAST HISTORY See nurses notes. PROBLEMS: Herpes Genitalis. STD - Sexually Transmitted Disease. Abscess. Cellulitis. MRSA Infection. Lymphadenitis. Atypical Chest Pain. Otitis Media. Bronchitis. Hyperactive thyroid. Colitis. UTI - Urinary Tract Infection. Rheumatoid Arthritis. --14:46 Trisha Gatica RIgnacio. SOCIAL HISTORY Light tobacco smoker. Occasional alcohol use. History of occasional drug use: marijuana. Not exposed to second-hand smoke at home. No recent travel. Is a local resident. FAMILY HISTORY Negative. ADDITIONAL NOTES The nursing notes have been reviewed with agreement regarding the chief complaint, HPI, ROS, PMH and patient medications and allergies. PHYSICAL EXAM Vital Signs: 06/07/2016 14:35 BP: 120/73. HR: 140. RR: 26. O2 saturation: 96%. Temp: 98.7 F. Pain level now: 10/10. Have been reviewed as abnormal and appear to be correct. Blood pressure normal. Tachycardic. Respiratory rate normal. Temperature normal. Oxygen saturation normal. Appearance: Alert. No acute distress. (pt appears under the influence). Eyes: Pupils equal, round and reactive to light. Eyes normal inspection. ENT: Ears normal. Nose normal. Pharynx normal. Uvula midline. Neck: Normal inspection. Neck supple. CVS: Heart rate / rhythm abnormal. Tachycardia (ventricular rate = 112). Heart sounds normal. Pulses normal. Respiratory: No respiratory distress. Breath sounds normal. Abdomen: Soft and nontender. No organomegaly. Back: Normal inspection. Skin: Skin warm and dry. Normal skin color. No rash. Normal skin turgor. Extremities: Extremities exhibit normal ROM. No lower extremity edema. Neuro: Oriented X 3. No motor deficit. No sensory deficit. PROGRESS AND PROCEDURES Patient counseled in person regarding the patient's stable condition and diagnosis. 15:31. Differential Diagnosis: Other possible considerations: flu, uri, viral illness, bronchitis, substance abuse, pneumonia. Above considerations are based on history and physical exam. Differential diagnosis was discussed with patient. Disposition: Discharged home in good and unchanged condition (15:31). Condition: good and stable. CLINICAL IMPRESSION Acute rhinitis. No airway obstruction. INSTRUCTIONS Alternate Tylenol (Acetaminophen) and Motrin (Ibuprofen) for fever, temperature greater than 101 degrees orally. Take according to label instructions. Drink plenty of fluids for the next 24 hours until better. Warnings: GENERAL WARNINGS: Return or contact your physician immediately if your condition worsens or changes unexpectedly, if not improving as expected, or if other problems arise. Specifically return if problem worsens. Prescription Medications: Zithromax 250 mg tablets: take 2 orally today, followed by 1 daily for the next 4 days. No refills. Substitution is permissible. Follow-up: Follow up with your doctor in about three days even if well. Call for an appointment. Summary of care provided to patient. Understanding of the discharge instructions verbalized by patient. (Electronically signed by Nirali Kwon A.R.N.P. 06/07/2016 17:14)
--- NOTE | 2016-06-07 17:14 | ED MAR SUMMARY ---
..... Medication Administration Record [facility] [address] [place], [place] [id number] Patient: MERISSA CARTER V Visit ID: [id number] 25y, F Weight: 58.9 kg Height/Length: 59 in BMI: 26.2 ALLERGIES: No Known Drug Allergy
--- NOTE | 2016-06-07 17:14 | ED MED RECONCILIATION SUMMARY ---
Patient: MERISSA CARTER V Medication Reconciliation Report [facility] VisitID: [id number] [address] [place] [address] 25y, F Registration Date/Time: 06/07/2016 Weight: 58.9 kg Height/Length: 59 in. BMI: 26.2 ALLERGIES: No Known Drug Allergy The patient's Home Medications are listed below: THE FOLLOWING MEDICATIONS NEED TO BE RECONCILED: Mucinex Fast-Max Day/Night Tab Oral, last dose: last night Thyroid Hormone tylenol 975mg prn, last dose 0900 The source(s) of the original Home Medication information: Not obtained. The following Medications were given to the patient in the Emergency Department: None. The following Medications were prescribed to the patient: Zithromax 250 mg tablets: take 2 orally today, followed by 1 daily for the next 4 days. No refills. Substitution is permissible. -- Nirali Kwon A.R.N.P.
--- NOTE | 2016-06-07 17:14 | ED MAR SUMMARY ---
..... Medication Administration Record [facility] [address] [place], [place] [id number] Patient: MERISSA CARTER V Visit ID: [id number] 25y, F Weight: 58.9 kg Height/Length: 59 in BMI: 26.2 ALLERGIES: No Known Drug Allergy
--- NOTE | 2016-06-07 17:14 | ED DISCHARGE INSTRUCTIONS ---
Patient: MERISSA CARTER V General Instructions [facility] VisitID: [id number] [place] [address] 25y, F Registration Date/Time: 06/07/2016 Acute rhinitis. No airway obstruction. INSTRUCTIONS Alternate Tylenol (Acetaminophen) and Motrin (Ibuprofen) for fever, temperature greater than 101 degrees orally. Take according to label instructions. Drink plenty of fluids for the next 24 hours until better. Warnings: GENERAL WARNINGS: Return or contact your physician immediately if your condition worsens or changes unexpectedly, if not improving as expected, or if other problems arise. Specifically return if problem worsens. Prescription Medications: Zithromax 250 mg tablets: take 2 orally today, followed by 1 daily for the next 4 days. No refills. Substitution is permissible. Follow-up: Follow up with your doctor in about three days even if well. Call for an appointment. Summary of care provided to patient. Understanding of the discharge instructions verbalized by patient. ADDITIONAL INFORMATION Viral Respiratory Illness [Adult] You have an Upper Respiratory Illness (URI) caused by a virus. This illness is contagious during the first few days. It is spread through the air by coughing and sneezing or by direct contact (touching the sick person and then touching your own eyes, nose or mouth). Most viral illnesses go away within 7-10 days with rest and simple home remedies. Sometimes, the illness may last for several weeks. Antibiotics will not kill a virus and are generally not prescribed for this condition. Home Care: 1) If symptoms are severe, rest at home for the first 2-3 days. When you resume activity, don't let yourself get too tired. 2) Avoid being exposed to cigarette smoke (yours or others). 3) Tylenol (acetaminophen) or ibuprofen (Advil, Motrin) will help fever, muscle aching and headache. (Persons under 18 with fever should not take aspirin since this may cause liver damage.) 4) Your appetite may be poor, so a light diet is fine. Avoid dehydration by drinking 6-8 glasses of fluids per day (water, soft drinks, juices, tea, soup). Extra fluids will help loosen secretions in the nose and lungs. 5) Cyhr-gws-[id number] cold medicines will not shorten the length of time youre sick, but they may be helpful for the following symptoms: cough (Robitussin DM); sore throat (Chloraseptic lozenges or spray); nasal and sinus congestion (Actifed, Sudafed, Chlortrimeton). Follow Up with your doctor or as advised if you dont improve over the next week. Get Prompt Medical Attention if any of the following occur: -- Cough with lots of colored sputum (mucus) or blood in your sputum -- Chest pain, shortness of breath, wheezing or have trouble breathing -- Severe headache; face, neck or ear pain -- Fever over 100.4 F (38.0 C) for more than three days -- You cant swallow due to throat pain Fever Control (Adult) A fever is a natural reaction of the body to an illness. In most cases, the temperature itself is not harmful. It actually helps the body fight infections. A fever does not need to be treated unless you feel very uncomfortable. Home Care If you feel warm, check your temperature. If you feel very uncomfortable and your temperature is at or higher than 100.4F (38C) oral, you may take acetaminophen (Tylenol) every 4 to 6 hours. If you cant take or keep down oral medicine, ask your pharmacist for Tylenol suppositories, which you can get without a prescription. If the fever does not respond to acetaminophen within 1 hour, take ibuprofen (Advil or Motrin). If this works, keep taking the ibuprofen every 6 to 8 hours. Note: If you have chronic liver or kidney disease or ever had a stomach ulcer or GI bleeding, talk with your doctor before using these medications. If either medication alone does not keep the fever down, you may alternate the two medicines every 3 to 4 hours, only if your healthcare provider has instructed you to do so. For example, take Motrin then wait 3 hours, take Tylenol then wait 3 hours, take Motrin, and so on. Follow your healthcare providers instructions exactly. Clothing: Keep clothing light because excess body heat is lost through the skin. The fever will go up if you wear extra layers or wrap in blankets. Fluids: Fever causes the body to lose water through evaporation. Drink plenty of fluids such as water, juice, clear sodas, leonila randolph, or lemonade. Do not use aspirin in anyone under 18 years of age who is ill with a fever. It can cause severe liver damage. Follow Up with your doctor or as advised by our staff if you do not get better after 48 hours. Get Prompt Medical Attention if any of the following occur: Fever does not get better after taking fever medication Fast or difficult breathing Earache, sinus pain, stiff or painful neck, headache, repeated diarrhea or vomiting You feel unusually irritable, drowsy, or confused A rash appears You feel weak or dizzy, or that you might faint Azithromycin Oral tablet What is this medicine? AZITHROMYCIN (az ith rajwinder MAY sin) is a macrolide antibiotic. It is used to treat or prevent certain kinds of bacterial infections. It will not work for colds, flu, or other viral infections. How should I use this medicine? Take this medicine by mouth with a full glass of water. Follow the directions on the prescription label. The tablets can be taken with food or on an empty stomach. If the medicine upsets your stomach, take it with food. Take your medicine at regular intervals. Do not take your medicine more often than directed. Take all of your medicine as directed even if you think your are better. Do not skip doses or stop your medicine early. Talk to your breakfast cook regarding the use of this medicine in children. Special care may be needed. What side effects may I notice from receiving this medicine? Side effects that you should report to your doctor or health career technical education teacher as soon as possible: allergic reactions like skin rash, itching or hives, swelling of the face, lips, or tongue confusion, nightmares or hallucinations dark urine difficulty breathing hearing loss irregular heartbeat or chest pain pain or difficulty passing urine redness, blistering, peeling or loosening of the skin, including inside the mouth white patches or sores in the mouth yellowing of the eyes or skin Side effects that usually do not require medical attention (report to your doctor or health career technical education teacher if they continue or are bothersome): diarrhea dizziness, drowsiness headache stomach upset or vomiting tooth discoloration vaginal irritation What may interact with this medicine? Do not take this medicine with any of the following medications: lincomycin This medicine may also interact with the following medications: amiodarone antacids cyclosporine digoxin magnesium nelfinavir phenytoin warfarin What if I miss a dose? If you miss a dose, take it as soon as you can. If it is almost time for your next dose, take only that dose. Do not take double or extra doses. Where should I keep my medicine? Keep out of the reach of children. Store at room temperature between 15 and 30 degrees C (59 and 86 degrees F). Throw away any unused medicine after the expiration date. What should I tell my health care provider before I take this medicine? They need to know if you have any of these conditions: kidney disease liver disease irregular heartbeat or heart disease an unusual or allergic reaction to azithromycin, erythromycin, other macrolide antibiotics, foods, dyes, or preservatives or trying to get breast-feeding What should I watch for while using this medicine? Tell your doctor or health career technical education teacher if your symptoms do not improve. Do not treat diarrhea with over the counter products. Contact your doctor if you have diarrhea that lasts more than 2 days or if it is severe and watery. This medicine can make you more sensitive to the sun. Keep out of the sun. If you cannot avoid being in the sun, wear protective clothing and use sunscreen. Do not use sun lamps or tanning beds/booths. You have been given the following additional information: Uri, Viral, No Abx (Adult) Fever Control (Adult) Azithromycin Oral tablet (Electronically signed by Nirali Kwon A.R.N.P. 06/07/2016 17:14)
--- NOTE | 2016-06-07 17:14 | ED MED RECONCILIATION SUMMARY ---
Patient: MERISSA CARTER V Medication Reconciliation Report [facility] VisitID: [id number] [address] [place] [address] 25y, F Registration Date/Time: 06/07/2016 Weight: 58.9 kg Height/Length: 59 in. BMI: 26.2 ALLERGIES: No Known Drug Allergy The patient's Home Medications are listed below: THE FOLLOWING MEDICATIONS NEED TO BE RECONCILED: Mucinex Fast-Max Day/Night Tab Oral, last dose: last night Thyroid Hormone tylenol 975mg prn, last dose 0900 The source(s) of the original Home Medication information: Not obtained. The following Medications were given to the patient in the Emergency Department: None. The following Medications were prescribed to the patient: Zithromax 250 mg tablets: take 2 orally today, followed by 1 daily for the next 4 days. No refills. Substitution is permissible. -- Nirali Kwon A.R.N.P.
== END 2016-06-07 15:45 | disposition home or self-care (01) ==
LOC: ED SRH 14:26
DX: J00 Acute nasopharyngitis [common cold] (principal); Z72.0 Tobacco use